=== PATIENT | female | born 1955 | race Caucasian/White ===

== ENCOUNTER 2019-04-19 21:09 | Inpatient (IN) | payer MEDICARE ==
[~2019-04-19] VITALS: Ht 167.6 cm; Wt 70.3 kg
[2019-04-19 22:30] VITALS: BP 99/61
[2019-04-19] MEDS ORDERED: MAG HYDROX/AL HYDROX/SIMETH 30 ML UDC PO PRN (22:30)
[2019-04-19] MEDS ORDERED: ACETAMINOPHEN 325 MG TABLET PO PRN (22:30)
[2019-04-19] MEDS ORDERED: LORAZEPAM 0.5 MG TABLET PO PRN (22:30)
[2019-04-19] MEDS ORDERED: MAGNESIUM HYDROXIDE 30 ML UDC PO PRN (22:30)
[2019-04-19] MEDS ORDERED: BLOOD SUGAR DIAGNOSTIC 1 EACH STRIP IN ONE (22:30)
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
--- NOTE | 2019-04-20 07:19 | NUR ---
GPS RN NOTES: CALLED THIS NUMBER [phone]- FOR FAMILY TO NOTIFY. A CERTAIN LADY ANSWERED AND TOLD THE PACKAGING SALES CONSULTANT NOT TO CALL THIS NUMBER AGAIN. MADE KNOWN TO FAMILY RESOURCE MANAGEMENT PROFESSOR. WILL ENDORSE TO MEDICAL DOCTOR NURSE.
[2019-04-20 07:20] LABS: CHOLESTEROL 153 mg/dL (<200); HDL CHOLESTEROL 58 mg/dL (40-60); LDL 87 mg/dL (0-99); TRIGLYCERIDES 59 mg/dL (30-150)
[2019-04-20 07:38] LABS: ALBUMIN 2.7 g/dL (3.4-5.0); BILIRUBIN,TOTAL 0.2 mg/dL (0.2-1.0); CREATININE 0.8 mg/dL (0.6-1.3); POTASSIUM 4.6 mmol/L (3.5-5.1); TOTAL PROTEIN, SERUM 7.1 g/dL (6.4-8.2)
[2019-04-20 08:00] VITALS: BP 100/63
--- NOTE | 2019-04-20 11:25 | NUR ---
WOUND CARE CONSULT: PT PRESENTS INDEPENDENT WITH BED MOBILITY AND CONTINENT WITH SCARRING AND DRY WOUNDS TO BUTTOCKS AND MIDBACK, PRESENT ON ADMISSION, POSSIBLY FROM PICKING AT HER SKIN. NO DRAINAGE NOTED, NO TENDERNESS OR REDNESS. RECOMMENDATIONS MADE FOR SKIN PROTECTION. DISCUSSED WITH NURSING STAFF. WILL SEE PRN.
[2019-04-20] MEDS ORDERED: Z GUARD REMEDY 2 OZ OINT TP PRN (11:30)
--- NOTE | 2019-04-20 15:19 | NUR ---
Initial Treatment Plan: Pt is currently homeless and states that she wants to be residing with her brother. SW will work with the pt and the MD regarding appropriate discharge planning. SW will form a safe and proper discharge plan.
--- NOTE | 2019-04-20 15:19 | NUR ---
Family Contact: BLESSING called the pts brother, John ([phone]), and was unable to make contact and left a voicemail stating that the BLESSING would like to discuss the pts treatment plan. Addendum: 04/20/19 at 1554 by MARY FUNK Harvey Lopez
--- NOTE | 2019-04-20 15:41 | NUR ---
GROUP NOTE: SW encouraged pt to participate in group on this present day discussing "positive coping skills." Pt was asleep and not easily aroused.
--- NOTE | 2019-04-20 15:56 | NUR ---
Family Contact: Pts brother, Harvey ([phone]) or ([phone]), and discussed the pts treatment plan. It was discussed that the pt is not going to be living with her brother and as she is homeless the SW will need to find placement for her.
[2019-04-20 16:00] VITALS: BP 99/53
[2019-04-20 20:28] VITALS: BP 97/64
[2019-04-20] MEDS: OLANZAPINE 5 MG/TAB.RAPDIS PO SCH (21:38)
[2019-04-20] MEDS: CEPHALEXIN MONOHYDRATE 500 MG CAPSULE PO SCH (21:38)
--- NOTE | 2019-04-21 05:33 | NUR ---
GPS RN NOTE URINE COLLECTED FOR URINE CULTURE & WAITING FOR THE LAB TO PICK IT UP.
[2019-04-21 05:52] VITALS: BP 96/53
[2019-04-21 08:00] VITALS: BP 100/62
[2019-04-21] MEDS: CEPHALEXIN MONOHYDRATE 500 MG CAPSULE PO SCH ×2 (09:11→21:25)
[2019-04-21 12:26] LABS: BASOPHILS # (AUTO) 0.1 /CMM (0.0-0.2); EOSINOPHILS % (AUTO) 4.3 % (0.0-6.0); HEMATOCRIT 40 % (33-45); HEMOGLOBIN 12.8 g/dL (11.5-14.8); LYMPHOCYTES # (AUTO) 1.7 /CMM (0.8-4.8); LYMPHOCYTES % (AUTO) 30.5 % (20.0-44.0); MEAN CORPUSCULAR HGB CONC 33 g/dl (31.0-36.0); MEAN CORPUSCULAR VOLUME 90 fL (82-100); MONOCYTES # (AUTO) 0.3 /CMM (0.1-1.30); MONOCYTES % (AUTO) 6.2 % (2.0-12.0); NEUTROPHILS # (AUTO) 3.2 /CMM (1.8-8.9); PLATELET COUNT (AUTO) 412 /CMM (150-450); WHITE BLOOD COUNT (AUTO) 5.4 K/uL (4.3-11.0)
--- NOTE | 2019-04-21 15:26 | NUR ---
Group Note: SW encouraged pt to participate in group on this present day discussing discharge planning. Pt refused to participate stating she wanted to stay in her room. SW attempted to provide intervention and informed her that she cannot return to her brothers house and that he would prefer that we place the pt in a SNF. She stated that she would rather be homeless.
[2019-04-21 16:00] VITALS: BP 107/68
[2019-04-21 19:45] VITALS: BP 121/68
[2019-04-21 20:00] VITALS: BP 121/68
[2019-04-21] MEDS: OLANZAPINE 5 MG/TAB.RAPDIS PO SCH (21:25)
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
--- NOTE | 2019-04-22 00:55 | NUR ---
GPS RN NOTE PATIENT IS SLEEPING AT THIS TIME. WILL CONTINUE TO MONITOR FOR ANY CHANGES.
--- NOTE | 2019-04-22 06:45 | NUR ---
GPS RN NOTE PATIENT REFUSED WOUND TREATMENT DESPITE OF RISKS & BENEFIT EXPLANATIONS, DOES NOT WANT TO BE TOUCHED, GETS AGITATED, RESTLESS & ANXIOUS. WILL ENDORSE TO AM RN.
[2019-04-22 08:00] VITALS: BP 101/61
[2019-04-22] MEDS: CEPHALEXIN MONOHYDRATE 500 MG CAPSULE PO SCH ×3 (08:15→21:00)
--- NOTE | 2019-04-22 09:00 | NUR ---
RN NOTE: PT REFUSED 0900 KEFLEX. EDUCATED PT REGARDING THE IMPORTANCE OF TAKING THE FULL DOSE OF ANTIBIOTIC FOR HER UTI. PT STATES, "NO, I HAVE A PRESCRIPTION FOR PCN AT HOME. I CAN REFUSE MEDICAL MEDICATION".
[2019-04-22 16:00] VITALS: BP 123/59
[2019-04-22 20:40] VITALS: BP 100/70
[2019-04-22] MEDS: OLANZAPINE 5 MG/TAB.RAPDIS PO SCH (21:30)
[2019-04-22 22:44] VITALS: BP 123/59
[2019-04-23 08:00] VITALS: BP 100/67
[2019-04-23] MEDS: CEPHALEXIN MONOHYDRATE 500 MG CAPSULE PO SCH ×2 (08:17→20:22)
--- NOTE | 2019-04-23 08:20 | NUR ---
PATIENT IS PARANOID. DESPITE SHOWING HER THAT CEPHALEXIN IS KEFLEX AND USED FOR UTI SHE THINKS IT IS ZYPREXA AND WERE TRYING TO DRUG HER.
[2019-04-23] MEDS: OLANZAPINE 5 MG/TAB.RAPDIS PO SCH ×2 (15:00→19:46)
[2019-04-23 16:00] VITALS: BP 135/52
--- NOTE | 2019-04-23 19:47 | NUR ---
RN NOTE: PT REFUSED ZYPREXA. EDUCATED PT ON THE IMPORTANCE REGARDING BEING COMPLIANT ON MEDICATIONS AND THE RESULTS SHE WILL SEE IN HER THOUGHT PROCESS AND LIFE. PT CONT TO REFUSE. PT PICKING WOUNDS ON FACE WHILE TALKING TO ME. PT DELUSIONAL AND PARANOID. CONT TO RUMINATE RE COURT HEARING.
[2019-04-23 20:19] VITALS: BP 78/57
--- NOTE | 2019-04-23 21:50 | NUR ---
RN NOTE: PT REFUSED RESTORIL. RESTORIL RETURNED.
[2019-04-24 08:00] VITALS: BP 117/52
[2019-04-24] MEDS: CEPHALEXIN MONOHYDRATE 500 MG CAPSULE PO SCH ×2 (08:13→21:43)
[2019-04-24] MEDS: OLANZAPINE 5 MG/TAB.RAPDIS PO SCH ×2 (08:13→16:06)
--- NOTE | 2019-04-24 08:14 | NUR ---
PATIENT REFUSED 0900 MEDS INCLUDING KEFLEX AND ZYPREXA
[2019-04-24 16:00] VITALS: BP 119/86
--- NOTE | 2019-04-24 16:06 | NUR ---
PATIENT REFUSED 1700 ZYPREXA
[2019-04-24 19:58] VITALS: BP 118/54
[2019-04-25 08:00] VITALS: BP 128/68
[2019-04-25] MEDS: OLANZAPINE 5 MG/TAB.RAPDIS PO SCH ×2 (09:00→16:17)
[2019-04-25] MEDS: CEPHALEXIN MONOHYDRATE 500 MG CAPSULE PO SCH ×3 (09:00→21:51)
--- NOTE | 2019-04-25 09:40 | NUR ---
PATIENT REFUSED 0900 MEDS
[2019-04-25 16:00] VITALS: BP 100/73
[2019-04-25 20:15] VITALS: BP 95/57
[2019-04-25] MEDS: TEMAZEPAM 7.5 MG CAPSULE PO PRN ×2 (21:52→22:26)
[2019-04-26 08:00] VITALS: BP 107/64
[2019-04-26] MEDS: CEPHALEXIN MONOHYDRATE 500 MG CAPSULE PO SCH ×2 (09:00→09:21)
[2019-04-26] MEDS: OLANZAPINE 5 MG/TAB.RAPDIS PO SCH ×3 (09:00→16:21)
--- NOTE | 2019-04-26 09:15 | NUR ---
[facility] Contact: Reyna Pavon ([phone]) called the SW and the SW informed her about the pts current discharge plan for a SNF and she stated that she would like to be updated on her discharge.
--- NOTE | 2019-04-26 09:28 | NUR ---
SNF Referral: BLESSING faxed a referral to [facility] with attn to Cony to the fax number: [phone].
[2019-04-26 16:00] VITALS: BP 101/69
[2019-04-26 20:43] VITALS: BP 99/57
--- NOTE | 2019-04-27 05:43 | NUR ---
PT WAS UP MOST OF THE NIGHT TALKING TO HERSELF. NURSE TRIED TO REORIENT PT TO PRESENT SITUATION BUT PT WAS NOT ABLE TO. AT 0550 SKILLED NURSE ENCOURAGED PT TO SHOWER BUT PT REFUSED STATING "I SHOWERED LAST NIGHT" WHICH IS NOT TRUE BECAUSE PT REFUSED TO SHOWER LAST NIGHT. PT IS NON-COMPLIANT WITH PLAN OF CARE. ISOLATIVE AND WITHDRAWN TO ROOM. NOT ENGAGING WITH PEERS OR STAFF.
--- NOTE | 2019-04-27 07:55 | NUR ---
RN NOTE: PT LEFT THE UNIT WITH RO LOERA FOR WRIT SCHEDULED AT 0830 [facility]
[2019-04-27] MEDS: OLANZAPINE 5 MG/TAB.RAPDIS PO SCH ×2 (08:52→16:45)
--- NOTE | 2019-04-27 10:09 | NUR ---
Facility Contact: Luis ([phone]) from [facility] contacted the and stated that the pt was accepted to their facility.
--- NOTE | 2019-04-27 10:20 | NUR ---
[facility] Contact: BLESSING called Roberto Mcguire ([phone]) and informed him that the pt is having a writ hearing today as well as a Riese hearing as the pt is refusing medications. BLESSING stated that the pt was accepted to a SNF and will inform him about her discharge.
--- NOTE | 2019-04-27 10:29 | NUR ---
[facility] Contact: SW called Reyna Pavon ([phone]) and left her a voicemail stating that she received her voicemail and that she will be available to answer whatever question she has.
--- NOTE | 2019-04-27 10:31 | NUR ---
[facility] Contact: BLESSING called Deputy Leblanc ([phone]) and informed him that the pt is having a writ and a Riese hearing today because she has been refusing services. BLESSING stated that the pt was accepted to a locked SNF and informed him that she will keep him updated in terms of discharge planning.
--- NOTE | 2019-04-27 10:44 | NUR ---
[facility] Hearing Notification: BLESSING called the pts brother, Harvey ([phone]), and left a voicemail that informed him that the pt has been refusing her medications and therefore there is going to be a hearing today to determine whether the MD can give her medications against her will.
--- NOTE | 2019-04-27 15:00 | NUR ---
RN-CO: Patient came back from [place] [address] and was released by the superior court from any futher involuntary treatment. Dr Covington is aware and ordered to asked patient to sign " Voluntarily." Patient refused to stay voluntarily and insisted to be discharge againts medical advice. Patient also signed AMA form. Patient " is aware of she is going and staying.She stated " I am going to stay to my boyfriends house in [place]." " I arranged for my taxi cab and will pay for it."
--- NOTE | 2019-04-27 15:00 | NUR ---
RN NOTE: PT RETURNED FROM COURT HEARING IN STABLE CONDITION
--- NOTE | 2019-04-27 15:30 | NUR ---
[facility] Contact: BLESSING called Roberto Mcguire ([phone]) and informed him that the pt was released from the court after filing her writ and so she is being discharged at this moment. BLESSING stated that the pt provided her with an address and is going to be using a taxi service to transport herself there.
--- NOTE | 2019-04-27 15:32 | NUR ---
Family Contact: BLESSING called the pts brother, Harvey ([phone]), and left a voicemail to inform him that the pt was discharged today because she won her writ hearing.
--- NOTE | 2019-04-27 15:55 | NUR ---
Discharge Note: Pt was discharged to an address of her choice located at [address], [address], [place], [place]. Pt won her writ hearing and is being discharged per her choice. Pt will be discharged via [facility] [employer]: [phone] that she has arranged for herself and will pay for her by her own means. Pts brother, Harvey ([phone]), was informed about this discharge. The pt appeared to be in a euthymic mood and presented with a calm affect. Pt denied both suicidal and homicidal ideation as well as auditory and visual hallucinations. Pt was accepted to [facility] but the pt refused this placement option. Pt was provided with homeless resources including [facility], health and mental health clinics, substance abuse referrals, homeless shelters, food gil, hot meals and showers. Pt will be under the care of [facility] for psychiatric services located at [address] [place] [address], [address], [place] [address]; ([phone]); fax: ([phone]). Pt has an appointment on 09/29/18 at 10AM. Pt will also be under the care of silk washing machine operator, Dr. Martin Gay, located at [address] [place] [address] [address], [place] [address]; .
[2019-04-27 16:00] VITALS: BP 109/70
--- NOTE | 2019-04-27 16:01 | NUR ---
SURVEILLANCE OPERATOR NOTE: PT DISCHARGED AMA IN STABLE CONDITION. PT NON-COMPLIANT WITH MEDICATION ADMINISTRATION AND PLAN OF CARE. PT DENIES SI/HI AT TIME OF DISCHARGE AND INSTRUCTED TO GO TO THE NEAREST ER IF DEVELOPING SI/HI. NO BEHAVIOR IMPROVEMENT NOTED DURING IN PT PSY HOSP DUE TO NON-COMPLIANCE WITH MED AND PLAN OF CARE. RETURNED PT'S BELONGINGS PT REFUSED TO SIGN DISCHARGE PAPERWORK PT WAS ESCORTED TO THE LOBBY AND EXITED VIA [facility]AXI IN STABLE CONDITION AT 1601
--- NOTE | 2019-04-27 16:06 | NUR ---
RN-CO: Patient refused to have a copy of exit care. " I don't need it." All valuables and belongings and valuables will be given back to the patient.
--- NOTE | 2019-04-27 17:45 | NUR ---
RN-CO:Patient was picked up by [facility] [employer] [facility] [employer] [phone]. All belongings was given back to her incl. her valuables. Patient refused to have a copy of exit care. Signed AMA. Instructed to see her travel agent and medical doctor for follow up and call 911 for emergency. She was escorted by staff in the hospital lobby. Brother was notified of her discharge.
== END 2019-04-27 18:23 | disposition left against medical advice (07) | DRG 885 ==
LOC: GPS 22:00
PROVIDERS: ADMIT Psychiatry & Neurology Psychiatry; ATTEND Internal Medicine
DX: F29 Unspecified psychosis not due to a substance or known physiological condition (principal); E43 Unspecified severe protein-calorie malnutrition; N39.0 Urinary tract infection, site not specified; F41.9 Anxiety disorder, unspecified; Z73.6 Limitation of activities due to disability; F32.9 Major depressive disorder, single episode, unspecified; Z59.0 Homelessness; Z91.14 Patient's other noncompliance with medication regimen
CPT/HCPCS: 36415; 80053-TC; 80061-TC; 82962-TC; 84443-TC; 85025-TC; 87081-TC; 87086-TC; 97116-TC; 97530-TC